=== PATIENT | male | born 1940 | race Caucasian/White ===

== ENCOUNTER 2025-02-14 16:02 | Inpatient (IN) | payer MEDICARE, OTHER ==
[~2025-02-14] VITALS: Ht 177.8 cm; Wt 65.8 kg
[2025-02-14] MEDS: IV NS 0.9% 1,000 ML BAG IV ONE ×2 (16:44→17:00)
[2025-02-14 16:53] LABS: BASOPHILS # (AUTO) 0.6 K/uL (0.0-0.2); BASOPHILS % (AUTO) 4.9 % (0.0-2.0); EOSINOPHILS # (AUTO) 0.1 K/uL (0.0-0.7); EOSINOPHILS % (AUTO) 0.5 % (0.0-6.0); HEMATOCRIT 35 % (39-51); HEMOGLOBIN 11.5 g/dL (13.5-17.5); LYMPHOCYTES # (AUTO) 1.4 K/uL (0.8-4.8); LYMPHOCYTES % (AUTO) 11.7 % (20.0-44.0); MEAN CORPUSCULAR HEMOGLOBIN 29 PG (26.0-33.0); MEAN CORPUSCULAR HGB CONC 33 g/dl (31.0-36.0); MEAN CORPUSCULAR VOLUME 90 fL (80-96); MONOCYTES # (AUTO) 0.9 K/uL (0.1-1.30); MONOCYTES % (AUTO) 7.6 % (2.0-12.0); NEUTROPHILS # (AUTO) 8.9 K/uL (1.8-8.9); NEUTROPHILS % (AUTO) 75.3 % (43.0-81.0); PLATELET COUNT (AUTO) 375 K/uL (150-450); RED CELL DISTRIBUTION WIDTH 15.4 % (11.5-15.0); WHITE BLOOD COUNT (AUTO) 11.8 K/uL (4.3-11.0)
[2025-02-14 17:11] LABS: SERUM AMMONIA 29 umol/L (11-32)
[2025-02-14 17:16] LABS: ALANINE AMINOTRANSFERASE 10 U/L (12-78); ALBUMIN 2.6 g/dL (3.4-5.0); ALKALINE PHOSPHATASE 77 U/L (46-116); ASPARTATE AMINOTRANSFERASE 30 U/L (15-37); BILIRUBIN,DIRECT 0.2 mg/dL (0.0-0.2); BILIRUBIN,TOTAL 0.6 mg/dL (0.2-1.0); CALCIUM, SERUM 9.4 mg/dL (8.5-10.1); CARBON DIOXIDE 31 mmol/L (21-32); CHLORIDE 107 mmol/L (98-107); CREATININE 1.5 mg/dL (0.6-1.3); GLUCOSE 161 mg/dL (74-106); POTASSIUM 4.3 mmol/L (3.5-5.1); SODIUM SERUM 144 mmol/L (136-145); UREA NITROGEN, BLOOD 19 mg/dL (7-18)
[2025-02-14 17:20] LABS: ACETAMINOPHEN < 10 ug/ml (10-30); SALICYLATE 0.7 mg/dL (2.8-20.0)
[2025-02-14 17:21] LABS: ALCOHOL, BLOOD < 3 mg/dL (0-10)
[2025-02-14 17:29] LABS: INR 1.23 (0.91-1.10); PARTIAL THROMBOPLASTIN TIME 27.6 SEC (24.3-34.3); PROTHROMBIN TIME 12.9 SECS (9.2-11.1)
[2025-02-14 17:32] LABS: APPEARANCE,URINE CLEAR (CLEAR); BILIRUBIN,URINE NEGATIVE (NEGATIVE); BLOOD, URINE NEGATIVE Ery/uL (NEGATIVE); COLOR,URINE YELLOW (YELLOW); KETONES,URINE NEGATIVE (NEGATIVE); LEUKOCYTE ESTERASE ,URINE NEGATIVE (NEGATIVE); NITRITE, URINE NEGATIVE (NEGATIVE); PROTEIN,URINE NEGATIVE (NEGATIVE); UGLUCOSE NEGATIVE (NEGATIVE); UROBILINOGEN,URINE 0.2 EU/dL (0.2)
[2025-02-14 17:39] LABS: AMPHETAMINE, URINE NEGATIVE (NEGATIVE); BARBITURATE, URINE NEGATIVE (NEGATIVE); BENZODIAZEPINE, URINE NEGATIVE (NEGATIVE); CANNABINOID, URINE NEGATIVE (NEGATIVE); COCCAINE, URINE NEGATIVE (NEGATIVE); PHENCYCLIDINE SCREEN,URINE NEGATIVE (NEGATIVE)
[2025-02-14 17:41] LABS: OPIATE, URINE POSITIVE (NEGATIVE)
[2025-02-14 17:41] LABS: LIPASE 10 U/L (16-77)
[2025-02-14] MEDS ORDERED: MAGNESIUM HYDROXIDE 30 ML UDC PO PRN (19:30)
[2025-02-14] MEDS ORDERED: ONDANSETRON HCL/PF 4 MG/2 ML VIAL IVP PRN (19:30)
[2025-02-14] MEDS ORDERED: Z GUARD REMEDY 4 OZ OINT TP PRN (19:30)
[2025-02-14] MEDS ORDERED: MAG HYDROX/AL HYDROX/SIMETH 30 ML UDC PO PRN (19:30)
[2025-02-14 20:00] VITALS: BP 104/61; TEMP 99.5; O2SAT 98
[2025-02-14] MEDS: IV NS 0.9% 1,000 ML IV PRN (23:13)
[2025-02-15 07:17] LABS: BASOPHILS # (AUTO) 0.1 K/uL (0.0-0.2); BASOPHILS % (AUTO) 0.6 % (0.0-2.0); EOSINOPHILS # (AUTO) 0.1 K/uL (0.0-0.7); EOSINOPHILS % (AUTO) 0.6 % (0.0-6.0); HEMATOCRIT 31 % (39-51); HEMOGLOBIN 10.2 g/dL (13.5-17.5); LYMPHOCYTES # (AUTO) 1.6 K/uL (0.8-4.8); LYMPHOCYTES % (AUTO) 15.8 % (20.0-44.0); MEAN CORPUSCULAR HEMOGLOBIN 30 PG (26.0-33.0); MEAN CORPUSCULAR HGB CONC 33 g/dl (31.0-36.0); MEAN CORPUSCULAR VOLUME 89 fL (80-96); MONOCYTES # (AUTO) 1.1 K/uL (0.1-1.30); MONOCYTES % (AUTO) 10.6 % (2.0-12.0); NEUTROPHILS # (AUTO) 7.2 K/uL (1.8-8.9); NEUTROPHILS % (AUTO) 72.4 % (43.0-81.0); PLATELET COUNT (AUTO) 327 K/uL (150-450); RED BLOOD CELL COUNT(AUTO) 3.43 MIL/uL (4.5-6.0); RED CELL DISTRIBUTION WIDTH 15.3 % (11.5-15.0)
[2025-02-15 07:18] LABS: CALCIUM, SERUM 9.1 mg/dL (8.5-10.1); CREATININE 1.3 mg/dL (0.6-1.3); MAGNESIUM 2.1 mg/dL (1.8-2.4); POTASSIUM 3.8 mmol/L (3.5-5.1)
[2025-02-15 08:00] VITALS: BP 104/57; TEMP 98.1; O2SAT 98
[2025-02-15] MEDS ORDERED: MONT10TA22 PO (14:54)
[2025-02-15] MEDS ORDERED: DOCU-275 PO (14:54)
[2025-02-15] MEDS ORDERED: MIDO2.5T PO (14:54)
[2025-02-15] MEDS ORDERED: ATOR20TA PO (14:54)
[2025-02-15] MEDS ORDERED: APIX5TAB PO (14:54)
[2025-02-15] MEDS ORDERED: GABA300C PO (14:54)
[2025-02-15] MEDS ORDERED: LEVO100T PO (14:54)
[2025-02-15] MEDS ORDERED: GUAI120013 PO (14:54)
[2025-02-15] MEDS ORDERED: FLUT1DIS3 IH (14:54)
[2025-02-15] MEDS ORDERED: IRON PO (14:54)
[2025-02-15] MEDS ORDERED: FURO20TA4 PO (14:54)
[2025-02-15] MEDS ORDERED: [UNRECOGNIZED DRUG - OTHER] PO (14:54)
[2025-02-15] MEDS ORDERED: POTA20TA10 PO (14:54)
[2025-02-15] MEDS ORDERED: OMEP40CA21 PO (14:54)
[2025-02-15] MEDS ORDERED: FAMO40TA7 PO (14:54)
[2025-02-15] MEDS ORDERED: OXYC1TAB8 PO (14:54)
[2025-02-15] MEDS ORDERED: AMIO200T5 PO (14:54)
[2025-02-15] MEDS ORDERED: CYAN-51 PO (14:54)
[2025-02-15] MEDS ORDERED: MAG PO (14:54)
[2025-02-15] MEDS: IV 1/2NS 1000 ML 1,000 ML IV SCH (15:29)
[2025-02-15] MEDS: ACETAMINOPHEN 325 MG TABLET PO PRN (17:07)
[2025-02-15 20:00] VITALS: BP 100/57; TEMP 99.3; O2SAT 96
[2025-02-16] MEDS: HYDROCODONE/APAP 5/325MG TABLET PO ONE (03:04)
[2025-02-16 08:00] VITALS: BP 104/57; TEMP 98.1; O2SAT 98
[2025-02-16] MEDS: Z GUARD REMEDY 4 OZ OINT TP SCH (09:40)
[2025-02-16] MEDS ORDERED: oxyCODONE/APAP (5/325 MG) 1 UDTAB TABLET PO PRN (11:00)
[2025-02-16] MEDS: NEOMY SULF/BACITRAC ZN/POLY 15 GM TUBE TP SCH (11:26)
[2025-02-16] MEDS: GABAPENTIN 300 MG CAPSULE PO SCH (12:06)
[2025-02-16] MEDS: CYANOCOBALAMIN 500 MCG TABLET PO SCH (12:13)
[2025-02-16] MEDS: ATORVASTATIN 10 MG TABLET PO SCH (12:16)
[2025-02-16] MEDS: MIDODRINE HCL (5MG) 5 MG TABLET PO SCH (14:12)
[2025-02-16] MEDS: CLOTRIMAZOLE 1% 15 GM TUBE TP SCH (16:37)
[2025-02-16] MEDS: APIXABAN 5 MG TABLET PO SCH (16:37)
[2025-02-16] MEDS: FAMOTIDINE (20 MG) 20 MG TABLET PO SCH (17:03)
[2025-02-16] MEDS: MONTELUKAST SODIUM (10MG) 10 MG TABLET PO SCH (17:04)
[2025-02-16] MEDS: DOCUSATE SODIUM 100 MG CAPSULE PO SCH (17:04)
[2025-02-16 20:00] VITALS: BP 112/64; TEMP 99.7; O2SAT 94
[2025-02-17] VITALS: BP 121/74; TEMP 97.3
[2025-02-17 04:00] VITALS: BP 121/68; TEMP 99.1; O2SAT 95
[2025-02-17] MEDS: LEVOTHYROXINE SODIUM 100 MCG TABLET PO SCH (07:50)
[2025-02-17] MEDS: POTASSIUM CHLORIDE 20 MEQ TAB.PRT.SR PO SCH (08:15)
[2025-02-17] MEDS: PANTOPRAZOLE 40 MG TABLET.DR PO SCH (08:16)
[2025-02-17] MEDS: FUROSEMIDE 20 MG TABLET PO SCH (08:17)
[2025-02-17] MEDS: AMIODARONE HCL 200 MG TABLET PO SCH (08:17)
[2025-02-17] MEDS: FLUTICASONE/VILANTEROL 1 EACH BLST.W.DEV IH SCH (08:20)
[2025-02-17 12:37] VITALS: BP 124/71
== END 2025-02-17 13:45 | DRG 640 ==
LOC: ER 16:10 → TELE1 19:30
PROVIDERS: ADMIT Internal Medicine; ATTEND Internal Medicine
DX: E86.0 Dehydration (principal); G93.41 Metabolic encephalopathy; N17.0 Acute kidney failure with tubular necrosis; D68.59 Other primary thrombophilia; E44.0 Moderate protein-calorie malnutrition; K21.9 Gastro-esophageal reflux disease without esophagitis; R62.7 Adult failure to thrive; I48.91 Unspecified atrial fibrillation; E03.9 Hypothyroidism, unspecified; Z85.51 Personal history of malignant neoplasm of bladder; Z85.850 Personal history of malignant neoplasm of thyroid; Z95.810 Presence of automatic (implantable) cardiac defibrillator; Z98.890 Other specified postprocedural states; Z88.0 Allergy status to penicillin; Z88.8 Allergy status to other drugs, medicaments and biological substances; Z74.09 Other reduced mobility; R13.10 Dysphagia, unspecified; E88.09 Other disorders of plasma-protein metabolism, not elsewhere classified; E86.9 Volume depletion, unspecified; M89.8X9 Other specified disorders of bone, unspecified site; D64.9 Anemia, unspecified
CPT/HCPCS: 36415; 70450-TC; 71045-TC; 80048-TC; 80076-TC; 82140-TC; 83690-TC; 83735-TC; 84100-TC; 84443-TC; 84484-TC; 85025-TC; 85730-TC; 87081-TC; 92526; 92611-TC; 97110-TC; 97112-TC; 97530-TC; A4223; G0378; G0480; J3490; J7030